=== PATIENT | male | born 1995 | race Caucasian/White ===

== ENCOUNTER 2017-06-09 08:29 | Emergency (ER) | payer OTHER ==
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
[2017-06-09 10:37] VITALS: BP 126/62
== END 2017-06-09 10:25 | disposition home or self-care (01) ==
LOC: ER 08:29
DX: S09.90XA Unspecified injury of head, initial encounter (principal); M79.1 Myalgia; V49.9XXA Car occupant (driver) (passenger) injured in unspecified traffic accident, initial encounter; Y92.411 Interstate highway as the place of occurrence of the external cause